=== PATIENT | male | born 1985 | race Two or more races ===

== ENCOUNTER 2025-02-04 19:56 | Emergency (ER) | payer MEDICAID, SELFPAY ==
[2025-02-04 19:58] VITALS: BP 144/88; PULSE 84; RESP 18; TEMP 37.2; O2SAT 98
[2025-02-04 19:59] VITALS: PULSE 112; RESP 18; O2SAT 98
[2025-02-04 20:00] VITALS: BMI 25.8
--- NOTE | 2025-02-04 20:02 | EDNOTE_ITS ---
ED General RME/HPI General Chief complaint: Medical Clearance Stated complaint: MEDICAL CLEARANCE Time Seen by Provider: 02/04/25 20:06 Arrival date/time: 02/04/25 19:56 RME / HPI RME / HPI narrative: see MDM Related Data Allergies Allergy/AdvReac Type Severity Reaction Status Date / Time No Known Allergies Allergy Verified 02/04/25 20:03 ED Exam Narrative Physical exam: Physical Exam GENERAL: NAD, lethargic, GCS of 14 HEENT: Moist mucosa. Eyes open, symmetrical, & clear CARDIO: Heart RRR, no obvious murmurs PULM: No noted coughing/dyspnea CTA B/L, no R/W/R GI: Abdomen soft, nondistended, no pain on palpation. BSx4 SKIN/MSK/EXT: No wounds/rashes/edema/amputations, no pain on palpation. Pedal pulses present B/L Course Quality Measures none Orders Category Date Time Status EKG (ED ONLY) *Do not use* NOW Care 02/04/25 20:34 Completed Saline [Insert IV] NOW Care 02/04/25 20:21 Completed Straight [In and Out Catheter] X1 Care 02/04/25 20:[address] cervical spine wo con Stat Exams 02/04/25 20:[address] chest abdomen pelvis wo Stat Exams 02/04/25 20:[address] head/brain wo con Stat Exams 02/04/25 20:09 Completed EKG (ED Only) Stat Exams 02/04/25 20:34 Ordered Acetaminophen Stat Lab 02/04/25 20:17 Completed Alcohol, Blood Medical Stat Lab 02/04/25 20:17 Completed Amylase Stat Lab 02/04/25 20:17 Completed Bilirubin,Direct Stat Lab 02/04/25 20:17 Completed CBC Stat Lab 02/04/25 20:17 Completed CK [Creatine Kinase] Stat Lab 02/04/25 20:17 Completed CMP [Comprehensive Metabolic Panel] Stat Lab 02/04/25 20:17 Completed Drug Screen,Urine Stat Lab 02/04/25 23:10 Completed Hemoglobin A1C [Glycohemoglobin w (eAG)] Stat Lab 02/04/25 20:17 Completed Lactate (Lactic Acid) Stat Lab 02/04/25 20:17 Completed Lactic Acid, 3 HR Stat Lab 02/04/25 23:40 Completed Lipid Panel Stat Lab 02/04/25 20:17 Completed Magnesium Stat Lab 02/04/25 20:17 Completed PT [Prothrombin Time with INR] Stat Lab 02/04/25 20:17 Completed PTT [Partial Thromboplastin Time] Stat Lab 02/04/25 20:17 Completed Salicylate Stat Lab 02/04/25 20:17 Completed Troponin I Stat Lab 02/04/25 20:17 Completed UA, C/S IF [Urinalysis, C/S if Indicated] Stat Lab 02/04/25 23:10 Completed LORazepam [Ativan Inj] Med 02/04/25 20:21 Discontinued 2 mg IVP X1 ONE Ondansetron Inj [Zofran Inj] Med 02/04/25 20:21 Discontinued 4 mg IVP X1 ONE Ringers Lactated 1000 ml [Lactated Ringers] 1,000 ml Med 02/04/25 21:21 Discontinued IV 1,000 mls/hr Ringers Lactated 1000 ml [Lactated Ringers] 1,000 ml Med 02/04/25 20:02 Discontinued IV 999 mls/hr Thiamine Inj [Vitamin B-1 Inj] 100 mg Med 02/04/25 20:36 Discontinued Sodium Chloride 0.9% [Ns] 100 ml IV X1 Vital Signs Vital signs: Vital Signs Temperature 98.9 F 02/04/25 19:58 Pulse Rate 84 02/04/25 19:58 Respiratory Rate 18 02/04/25 19:58 Blood Pressure 144/88 H 02/04/25 19:58 Pulse Oximetry (%) 98 02/04/25 19:58 Oxygen Delivery Method Room Air 02/04/25 19:58 Discharge Plan Plan Patient Disposition: Halfway/Court/Law Prescriptions/Referrals Referrals: No Primary/Family,Physician [Primary Care Provider] - In 1 week Problem List Clinical Impression: Alcohol intoxication, Hypoglycemia Patient/Caregiver Discharge Instructions Education Materials: Alcohol and Older Adults, Alcohol Abuse Life After Combat, Alcohol Addiction, Alcohol Withdrawal: What to Expect, ED Alcohol Intoxication, ED Hypoglycemia, Nondiabetic Additional Instructions: 1.Follow up with your primary doctor within 1 week of discharge 2. Please abstain from excessive alcochol use. 3. Please remember to stay hydrated and eat well to avoid hypoglycemia in addition to abstaining from alcohol Print Language: Serbian MDM Narrative MDM hospital course: 39 y/o M who presented here for custodial clearance. Officer found him lying on the floor unknown if he fell or hit his head. Was being taken to custodial when he said he was gonna pass out and a few minutes later blacked out. Was found with a GCS of [address] and was given D10 by EMS and GCS improved to 14. He is able to be aroused with sternal rub, states he drank 2 whole bottles of liquor. Denies any drug use. 2013: Labs ordered, imaging ordered, IVFs 2030 ativan 2mg IV x1 given 2032 Lactic acid reported 6.0 After administrations of IV fluids, patient is safe for discharge to custodial Clinical Information Provided by EMS and law enforcement Medical Records Reviewed None Chronic Illness/Social Conditions which may negatively complicate care or outcome(s)-explain: None or not applicab le EKG EKG not done Lab Interpretation Labs: interpreted by me Lab(s) interpretation(s): Mild leukocytosis, metabolic acidosis, lactic acidosis rest of labs negative Imaging Imaging interpretation: none Radiology reports / interpretation(s): See radiology report Medication Administration(s) Medication Administration History Discontinued Medications Lactated Ringer's (Lactated Ringers) 1,000 mls @ 999 mls/hr IV .Q1H1M ONE Stop: 02/04/25 21:02 Last Infusion: 02/04/25 21:27 Dose: Infused Documented By: Admin: 02/04/25 20:25 Dose: 999 mls/hr Documented By: SEBAS Thiamine HCl 100 mg/ Sodium (Chloride) 101 mls @ 202 mls/hr IV X1 ONE Stop: 02/04/25 21:05 Last Infusion: 02/04/25 21:40 Dose: Infused Documented By: Admin: 02/04/25 21:07 Dose: 202 mls/hr Documented By: Lactated Ringer's (Lactated Ringers) 1,000 mls @ 1,000 mls/hr IV .Q1H STA Stop: 02/04/25 22:20 Last Infusion: 02/04/25 22:59 Dose: Infused Documented By: Admin: 02/04/25 21:42 Dose: 1,000 mls/hr Documented By: SEBAS Lorazepam (Lorazepam 2 Mg/Ml Vial) 2 mg IVP X1 ONE Stop: 02/04/25 20:22 Last Admin: 02/04/25 20:31 Dose: 2 mg Documented By: SEBAS Ondansetron HCl (Ondansetron Inj 2 Mg/Ml Inj 2 Ml) 4 mg IVP X1 ONE; Protocol Stop: 02/04/25 20:22 Last Admin: 02/04/25 20:30 Dose: 4 mg Documented By: SEBAS Diagnosis Differential diagnosis: Alcohol intoxication, hypoglycemia Dispositon Disposition: Incarceration/CPS
--- NOTE | 2025-02-04 20:09 | XR_ITS ---
Examination: CT brain head without contrast. 2-D sagittal coronal reconstructions Date and time of exam:February 04, 2025, 2028 hours INDICATIONS: Ground-level fall today with images of the head, head pain CTDI: vol (mGy):63 DLP: (mGycm):1420 Technique: Multiple CT axial sections of the brain have been obtained, 5 mm slice thickness. Contrast has not been administered. 2-D sagittal, coronal reconstructions have been obtained Low dose protocols were performed. One or more of the following dose reduction techniques were used; automated exposure control, adjustment of the mA and/or KV according to patient size, use of iterative reconstruction technique. Findings: No significant ventricular enlargement. Intra-axial or extra-axial hemorrhage density is not seen. No mass effect or midline shift Basal cisterns are not remarkable. Fourth ventricle is midline. Cranial vault intact. Impression: Negative for acute hemorrhage, mass effect or midline shift
--- NOTE | 2025-02-04 20:11 | XR_ITS ---
Examination: CT chest, without intravenous contrast. CT abdomen, without intravenous contrast. CT pelvis, without intravenous contrast. 2-D sagittal and coronal reconstructions. 3-D reconstructions. Date and time of exam:February 04, 2025, 2044 hours INDICATIONS: Patient fell today with injury to the chest and abdomen, chest pain and abdomen pain CTDI vol (mgy) 17 DLP (MGycm)1377 Technique: Multiple CT images, 3.0 mm slice thickness, obtained chest, abdomen, pelvis, with the high-resolution 64 slice scanner.. Sagittal and coronal 2-D reconstructions are obtained. 3-D reconstructions Low dose protocols were performed. One or more of the following dose reduction techniques were used; automated exposure control, adjustment of the mA and/or KV according to patient size, use of iterative reconstruction technique. Findings: Thoracic aorta pulmonary arteries intact No hemopericardium No pneumothorax or pulmonary contusion or hemothorax No abdominal parenchymal laceration Abdominal aorta is intact No free blood in the abdomen or pelvis The osseous structures grossly intact Incomplete study, no lung density and no bone density settings have been presented An addendum report will be made when these images are available for interpretation IMPRESSION: Incomplete study. Thoracic aorta pulmonary arteries intact No pneumothorax or pulmonary contusion No abdominal parenchymal laceration. Abdominal aorta intact No free provide in the abdomen or pelvis
--- NOTE | 2025-02-04 20:11 | XR_ITS ---
Examination: CT cervical spine without contrast 2-D sagittal reconstructions 2-D coronal reconstructions 3-D reconstructions. Exam date and time:February 04, 2025, 2044 hours INDICATIONS: Ground-level fall today with into the neck, neck pain CTDI:vol (mGy) 63 DLP: (mGycm) 1420 Technique: Multiple 2 mm axial sections of the cervical spine have been obtained. The coronal and sagittal reconstructions have been obtained. 3-D reconstructions have been obtained. Low dose protocols were performed. One or more of the following dose reduction techniques were used; automated exposure control, adjustment of the mA and/or KV according to patient size, use of iterative reconstruction technique. Findings: Axial sections demonstrate intact base of the skull. C1 exhibit satisfactory relationship to the odontoid. No acute cervical vertebral body fracture seen. Alignment posterior spinous processes satisfactory. Impression: No acute cervical fracture.
[2025-02-04] MEDS: RINGERS LACTATED 1000 ML 1,000 ML 999 ML IV (20:25)
[2025-02-04 20:29] LABS: Lactate (Lactic Acid) 6.0 mMol/L (0.4-2.0)
[2025-02-04] MEDS: ONDANSETRON INJ 2 MG/ML INJ 2 ML 4 MG IVP (20:30)
[2025-02-04] MEDS: LORazepam 2 MG/ML VIAL IVP (20:31)
[2025-02-04 20:34] LABS: Basophils # (Auto) 0.0 Thou/mm3 (0.0-0.2); Basophils % (Auto) 0 % (0-2.5); Eosinophils # (Auto) 0.0 Thou/mm3 (0.0-0.5); Eosinophils % (Auto) 0 % (0-10); Hematocrit 42.4 % (41.0-53.0); Hemoglobin 14.7 g/dL (13.5-16.0); Immature Granulocytes Auto 0.04 Thou/mm3 (0.00-0.00); Lymphocytes # (Auto) 2.1 Thou/mm3 (1.0-4.8); Lymphocytes % (Auto) 19 % (10-50); Mean Corpuscular HGB Conc 34.7 g/dl (31.0-37.0); Mean Corpuscular Hemoglobin 31.0 pg (25.0-35.0); Mean Corpuscular Volume 90 fL (80-100); Monocytes # (Auto) 0.5 Thou/mm3 (0.0-0.8); Monocytes % (Auto) 5 % (0-12); Neutrophils # (Auto) 8.7 Thou/mm3 (1.8-7.7); Neutrophils % (Auto) 76 % (37-80); Nucleated Red Blood Cell # 0.00 Thou/mm3 (0.00-0.00); Nucleated Red Blood Cell % 0 /100 WBC (0); Platelet Count 307 Thou/mm3 (140-440); RDW Standard Deviation 42.1 fL (35.1-43.9); Red Blood Count 4.74 Miln/mm3 (4.50-5.90); White Blood Count 11.5 Thou/mm3 (3.8-10.6)
[2025-02-04 21:02] LABS: Alanine Aminotransferase 21 U/L (10-49); Albumin, Serum 4.8 gm/dL (3.5-5.0); Albumin/Globulin Ratio 1.5 (1.2-2.2); Alkaline Phosphatase 71 U/L (46-116); Anion Gap 18 (7-16); Aspartate Amino Transferase 21 U/L (0-34); BUN/Creatinine Ratio 14 Ratio (12-20); Bilirubin,Total 0.6 mg/dL (0.3-1.2); Blood Urea Nitrogen 14 mg/dL (9-23); Calcium 9.5 mg/dL (8.3-10.6); Calcium (Corrected) 9.5 mg/dL (8.5-10.1); Carbon Dioxide 17.5 mMol/L (20.0-31.0); Chloride 111 mMol/L (98-107); Creatine Kinase 95 U/L (34-171); Creatinine (Component) 1.0 mg/dL (0.6-1.3); Estimated Creatinine Clearance 101.4 mL/min (>60); Globulin 3.2 gm/dL (2.3-3.5); Glucose 182 mg/dL (74-106); Osmolality,Calculated 296 (275-295); Potassium 3.5 mMol/L (3.4-5.1); Sodium 146 mMol/L (136-145); Total Protein 8.0 gm/dL (5.7-8.2); eGFR > 60 See Note
[2025-02-04] MEDS: THIAMINE INJ 100 MG in SODIUM CHLORIDE 0.9% 100 ML 202 MG IV (21:07)
[2025-02-04 21:22] LABS: INR 1.1 (0.9-1.3); Partial Thromboplastin Time 27.5 Seconds (22.0-36.0); Prothrombin Time 11.6 Seconds (9.0-12.2)
[2025-02-04 21:40] VITALS: BP 138/111; PULSE 102; RESP 19; O2SAT 96
[2025-02-04] MEDS: RINGERS LACTATED 1000 ML 1,000 ML IV (21:42)
[2025-02-04 21:52] LABS: Acetaminophen < 2.0 mcg/mL (10.0-20.0); Alcohol, Blood Medical 213.8 mg/dL (0-10.0); Bilirubin,Direct 0.2 mg/dL (0.0-0.3); Magnesium 2.0 mg/dL (1.6-2.6); Salicylate < 3.0 mg/dL; Troponin I < 0.020 ng/mL (0.0-0.045)
[2025-02-04 23:19] LABS: Collection Type, Urine Clean Catch
[2025-02-04 23:26] LABS: Reflex Lactate? Y
[2025-02-04 23:27] LABS: Bilirubin,Urine Negative (Negative); Blood,Urine Negative (Negative); Clarity,Urine Clear (Clear/Hazy); Color,Urine Lt-Yellow (Lt Yel-Yel); Culture Indicated,Urine Not Indicated; Glucose, Urine Negative (Negative); Hyaline Casts,Urine < 1 /hpf (0-1); Ketones,Urine 2+ (Negative); Leukocyte Esterase,Urine Negative (Negative); Nitrite,Urine Negative (Negative); PH,Urine 6.0 (5.0-7.0); Protein,Urine Trace (Neg - Trace); RBC,Urine 2 /hpf (0-3); Specific Gravity,Urine 1.026 (1.001-1.035); Squamous Epithelial Cell,Urine < 1 /hpf (0-5); Urobilinogen,Urine Negative mg/dL (0.0-1.0); WBC,Urine 1 /hpf (0-5)
[2025-02-04 23:39] LABS: Glucose Estimated Average 97 mg/dL (80-131); Hemoglobin A1C 5.0 % Hgb (4.8-6.0)
[2025-02-04 23:45] VITALS: BP 145/99; PULSE 89; RESP 18; TEMP 36.7; O2SAT 98
[2025-02-04 23:46] LABS: Amylase 66 U/L (30-118); Cardiac Risk Estimate 4.9 RATIO (4.0-6.7); Cholesterol 216 mg/dL (132-200); HDL Cholesterol 44 mg/dL (40-60); LDL Cholesterol,Calculated 140 mg/dL (0-130); Triglycerides 162 mg/dL (30-150)
[2025-02-04 23:47] LABS: Lactic Acid, 3 HR 3.7 mMol/L (0.4-2.0)
[2025-02-04 23:50] LABS: Amphetamine/Methamp Scrn,U Negative (Negative); Barbiturate Screen,Urine Negative (Negative); Benzodiazepines Screen,Urine Negative (Negative); Benzoylecgonine Screen, Ur Negative (Negative); Fentanyl Screen,Urine Negative (Negative); Opiate Screen,Urine Negative (Negative); THC Screen,Urine Positive (Negative)
== END 2025-02-05 00:04 ==
PROVIDERS: Emergency Medicine; Emergency Provider Student in an Organized Health Care Education/Training Program
DX: Z02.89 Encounter for other administrative examinations (principal); E16.2 Hypoglycemia, unspecified; F10.229 Alcohol dependence with intoxication, unspecified; R51.9 Headache, unspecified; M54.2 Cervicalgia; S29.9XXA Unspecified injury of thorax, initial encounter; S39.91XA Unspecified injury of abdomen, initial encounter; W19.XXXA Unspecified fall, initial encounter; Y90.7 Blood alcohol level of 200-239 mg/100 ml
CPT/HCPCS: 36415; 70450; 71250; 72125; 74176; 80053; 80061; 80307; 80320; 80329; 81001; 82150; 82248; 82550; 83036; 83605; 83690; 83735; 84484; 85025; 85610; 85730; 93005; 96361; 96374; 96375; 99284; J2060; J2405; J3411; J7050; J7120; G0480